=== PATIENT | male | born 1980 | race African-American/Black ===

== ENCOUNTER 2018-06-12 11:41 | Emergency (ER) | payer OTHER ==
[~2018-06-12] VITALS: Ht 167.6 cm; Wt 72.6 kg
[2018-06-12] MEDS ORDERED: AMOXIL 875 MG875 M1 PO (12:10)
[2018-06-12] MEDS ORDERED: MEDROLDOSEPACK PO (12:10)
[2018-06-12 12:50] VITALS: BP 112/66
== END 2018-06-12 12:52 | disposition home or self-care (01) ==
LOC: ER 11:41
DX: H66.91 Otitis media, unspecified, right ear (principal); I10 Essential (primary) hypertension